=== PATIENT | male | born 1960 | race Caucasian/White ===

== ENCOUNTER → 2018-12-14 | Outpatient (CLI) | payer OTHER ==
--- NOTE | 2018-12-14 14:40 | PCVCIMAG ---
APPROVED REPORT Study performed: 12/14/2018 09:47:19 Exam: Stress Echocardiogram Indication: Chest pain , Dyspnea , Hypertension Patient Location: Echo lab Stress Nurse: Sendy Collier RN Room #: 2 Status: routine Ht: 5 ft 5 in HR: 81 bpm BP: 150/102 mmHg Rhythm: NSR Medical History Medical History: HTN Cardiac Risk Factors: HTN Previous Cardiac Procedures: none Pretest Chest Pain Characteristics: No chest pain Exercise History: Physically active Procedure The patient underwent an Exercise Stress Test using the Alda Protocol. Blood pressure, heart rate, and EKG were monitored. An Echocardiogram was performed by air analysis engineering technician in four stages in quad fashion. At peak stress, four selected images were obtained and placed side by side with resting images for comparison. Stress Test Details Stress Test: Exercise stress testing was performed using a Alda protocol. HR Resting HR: 98 bpmMax Heart Rate (APMHR): 163 bpm Max HR Achieved: 164 bpmTarget HR (85% APMHR): 138 bpm % of APMHR: 100 Recovery HR: 127 bpm HR response to stress: Normal HR response to stress BP Resting BP: 150/102 mmHg Max BP: 180/100 mmHg Recovery BP: 148/84 mmHg BP response to stress: l hypertensive response to stress. ECG Resting ECG: Sinus Rhythm Stress ECG: Sinus Rhythm ST Change: Non-ischemic Maximum ST Deviation: -0.60 mm Arrhythmia: Frequent PVCs,occasional couplet PVCs at peak exercise Recovery ECG: Sinus Rhythm Recovery ST Change: Non-ischemic Recovery ST Deviation: 0.85 mm Recovery Arrhythmia: PACs Clinical Reason for Termination: Maximal effort Stress Symptoms: fatigue Exercise duration: 10 min 18 sec Highest Stage Achieved: Stage 4: 4.2 mph at 16% grade. Exercise capacity: 13.7 METs Overall Exercise Capacity for Age: Good Scale: Active Angina Score: None No complications. Stress ECG Conclusion The patient exercised according to the ALDA protocol for 10:18 mins; achieving a work level of 13.7 METS. The resting heart rate of 81 bpm darvin to a maximum heart rate of 164 bpm. This value represents 100% of the maximal, age-predicted heart rate. The resting blood pressure of 150/102 mmHg, darvin to a maximum blood pressure of 180/100 mmHg. The exercise test was stopped due to fatigue and dyspnea. Hollins Treadmill Score is 13.0 which is Low risk. Pre-Stress Echo The resting Echocardiogram showed normal left ventricular contractility with an estimated Ejection Fraction of about 55-60%. Normal wall motion in all segments on baseline images. Post-Stress Echo The stress Echocardiogram showed normal left ventricular contractility with an estimated Ejection Fraction of about 65-70%. Normal augmentation of wall motion in all segments on post stress images. Clinical No clinical or ECG evidence for ischemia. Conclusion Clinical Response: Non-ischemic Exercise Capacity: Average Stress ECG Response: Non-ischemic Stress Echo Images: Non-ischemic No clinical, EKG or echocardiographic evidence for ischemia. No echocardiographic evidence for exercise induced ischemia. Normal stress echocardiogram with maximal exercise stress. <Conclusion> No clinical, EKG or echocardiographic evidence for ischemia. No echocardiographic evidence for exercise induced ischemia. Normal stress echocardiogram with maximal exercise stress.
== END | disposition home or self-care (01) ==
LOC: PCVCIMAG 09:08
PROVIDERS: ATTEND Internal Medicine Cardiovascular Disease
DX: R07.89 Other chest pain (principal); R06.02 Shortness of breath; E78.00 Pure hypercholesterolemia, unspecified; I10 Essential (primary) hypertension; Z82.49 Family history of ischemic heart disease and other diseases of the circulatory system; Z88.0 Allergy status to penicillin
CPT/HCPCS: 93325; 93351